=== PATIENT | male | born 1975 | race Two or more races ===

== ENCOUNTER 2021-05-09 01:23 | Emergency (ER) | payer SELFPAY ==
[2021-05-09] MEDS ORDERED: Sodium Chloride 0.9% 1,000 ML IV ONE (01:25)
[2021-05-09] MEDS ORDERED: Sodium Chloride 0.9% 2.5 ML Syringe FLUSH PRN (01:35)
[2021-05-09] MEDS ORDERED: Sodium Chloride 0.9% 10 ML Syringe FLUSH PRN (01:35)
[2021-05-09] MEDS ORDERED: Naloxone 0.4 MG/ML Syringe IVPUSH ONE (01:36)
--- NOTE | 2021-05-09 01:47 | EDM.PDOC ---
<Manas Zavaleta - Last Filed: 05/09/21 06:01> ED HPI GENERAL MEDICAL PROBLEM - General Chief Complaint: Drug or Alcohol Abuse Stated Complaint: OVERDOSE Time Seen by Provider: 05/09/21 01:37 - History of Present Illness INITIAL COMMENTS - FREE TEXT/NARRATIVE: History of present illness: [] Medics brought this patient unconscious from the [facility]. There were 10 or so people there that appear to be intoxicated. One other was unconscious. This 1 rales more easily with Narcan and then the other so the first 1 was brought ahead of this 1. Patient was moving his hands to noxious stimuli but not opening his eyes. Initial Glascow of 5. Before intubation we gave Narcan for additional milligrams after it had 4 AM and to IV. The patient woke up. He is very sleepy but able to open his eyes spontaneously and had a Glascow of 10 after the Narcan. He still did not speak to me. He did shake his head yes appropriately. Review of systems: As per history of present illness and below otherwise all systems reviewed and negative. Past medical history: As per history of present illness and as reviewed below otherwise noncontributory. Surgical history: As per history of present illness and as reviewed below otherwise noncontributory. Social history: No reported history of drug or alcohol abuse. Family history: As per history of present illness and as reviewed below otherwise noncontributory. Physical exam: Constitutional - well developed, well-nourished and in no acute distress HEENT - normocephalic, no evidence of trauma - external nose and mouth normal - no mass in neck and no JVD - mucosae moist EYES - full EOM, PERRL, no icterus - no evidence of inflammation, injection, or drainage Respiratory - no respiratory distress, equal bilateral expansion, lungs clear to auscultation and no abnormal lung sounds Cardiovascular - Regular Rhythm with S1 and S2 appreciated and no murmur, gallop or rub. GI - abdomen soft without distension or organomegaly - normal bowel sounds - no guard or rebound Musculoskeletal no gross deformity of long bones or joints - no tenderness, swelling or edema Neurologic -lethargic but opens his eyes and shake his head yes and no to appropriate questions- CN II-XII grossly intact - motor sensory and coordination symmetrically normal Psychiatric -unable to assess Hematologic - No petechiae or purpura - mucosa appropriate color and sclera not pale - normal nail bed color and refill Integument - no rash or evidence of trauma - normal turgor Diagnostics: [] Therapeutics: [] Impression: [] Plan: [] Definitive disposition and diagnosis as appropriate pending reevaluation and review of above. - Related Data Allergies Allergy/AdvReac Type Severity Reaction Status Date / Time Unable to Assess Allergy Unverified 05/09/21 03:36 Home Meds: Home Meds . [Unable to Verify Home Med List] 05/09/21 [History] ED ROS GENERAL - Review of Systems Review Of Systems: Comprehensive ROS is negative, except as noted in HPI. Reason Not Obtained: Patient does not answer most of my questions ED EXAM, GENERAL - Physical Exam Exam: See Below Free Text/Narrative:: Physical exam is in the HPI Course - Vital Signs Text/Narrative:: 3:37 AM the patient has an alcohol for 48. He is protecting his own airway. The only people they could possibly give him a ride home that I have access to were almost as bad office he is. I think he is going to have to wake up so we can talk to him more and see if he needs anything else done. Departure - Departure Disposition: Home, Self-Care 01 Condition: Good Clinical Impression: Alcohol intoxication - Discharge Information Instructions: Alcohol Intoxication, [id number] Referrals: PCP,None [Primary Care Provider] - Forms: ED Department Discharge Additional Instructions: The following information is given to patients seen in the emergency department who are being discharged to home. This information is to outline your options for follow-up care. We provide all patients seen in our emergency department with a follow-up referral. The need for follow-up, as well as the timing and circumstances, are variable depending upon the specifics of your emergency department visit. If you don't have a primary care physician on staff, we will provide you with a referral. We always advise you to contact your personal physician following an emergency department visit to inform them of the circumstance of the visit and for follow-up with them and/or the need for any referrals to a consulting specialist. The emergency department will also refer you to a specialist when appropriate. This referral assures that you have the opportunity for follow-up care with a specialist. All of these measure are taken in an effort to provide you with optimal care, which includes your follow-up. Under all circumstances we always encourage you to contact your private physician who remains a resource for coordinating your care. When calling for follow-up care, please make the office aware that this follow-up is from your recent emergency room visit. If for any reason you are refused follow-up, please contact the [facility] Emergency Department at and asked to speak to the emergency department charge nurse. [facility] [address] [place] [id number] [address] <Leonel Escobedo - Last Filed: 05/09/21 08:28> Course - Vital Signs Last Recorded V/S: Last Vital Signs Temp 97.1 F 05/09/21 01:23 Pulse 69 05/09/21 01:23 Resp 10 L 05/09/21 01:23 BP 107/64 05/09/21 01:23 Pulse Ox 96 05/09/21 01:23 - Orders/Labs/Meds Orders: Active Orders 24 hr Category Date Time Status DRUG SCREEN, URINE [URCHEM] Stat Lab 05/09/21 01:35 Ordered Sodium Chloride 0.9% [Saline Flush] Med 05/09/21 01:35 Active 10 ml FLUSH ASDIRECTED PRN Sodium Chloride 0.9% [Saline Flush] Med 05/09/21 01:35 Active 2.5 ml FLUSH ASDIRECTED PRN Saline Lock Insert [OM.PC] Stat Oth 05/09/21 01:35 Ordered Medication Orders Sodium Chloride (Sodium Chloride 0.9% 10 Ml Syringe) 10 ml FLUSH ASDIRECTED PRN PRN Reason: Keep Vein Open Last Admin: 05/09/21 08:13 Dose: 10 ml Documented by: SALONI Sodium Chloride (Sodium Chloride 0.9% 2.5 Ml Syringe) 2.5 ml FLUSH ASDIRECTED PRN PRN Reason: Keep Vein Open Last Admin: 05/09/21 08:13 Dose: 2.5 ml Documented by: SALONI Labs: Laboratory Tests 05/09/21 05/09/21 Range/Units 01:23 01:23 WBC 8.28 (4.0-11.0) K/uL RBC 4.91 (4.50-5.90) M/uL Hgb 14.9 (13.0-17.0) g/dL Hct 43.6 (38.0-50.0) % MCV 88.8 (80.0-98.0) fL MCH 30.3 (27.0-32.0) pg MCHC 34.2 (31.0-37.0) g/dL RDW Std Deviation 46.0 (28.0-62.0) fl RDW Coeff of Raghavendra 14 (11.0-15.0) % Plt Count 204 (150-400) K/uL MPV 11.10 (7.40-12.00) fL Neut % (Auto) 42.8 L (48.0-80.0) % Lymph % (Auto) 48.4 H (16.0-40.0) % Hardee % (Auto) 4.8 (0.0-15.0) % Eos % (Auto) 3.6 (0.0-7.0) % Baso % (Auto) 0.4 (0.0-1.5) % Neut # (Auto) 3.5 (1.4-5.7) K/uL Lymph # (Auto) 4.0 H (0.6-2.4) K/uL Hardee # (Auto) 0.4 (0.0-0.8) K/uL Eos # (Auto) 0.3 (0.0-0.7) K/uL Baso # (Auto) 0.0 (0.0-0.1) K/uL Nucleated RBC % 0.0 /100WBC Nucleated RBCs # 0 K/uL Sodium 142 (136-148) mmol/L Potassium 3.7 (3.5-5.1) mmol/L Chloride 106 (98-107) mmol/L Carbon Dioxide 23.0 (21.0-32.0) mmol/L BUN 10 (7.0-18.0) mg/dL Creatinine 0.9 (0.8-1.3) mg/dL Est Cr Clr Drug Dosing TNP Estimated GFR (MDRD) > 60.0 ml/min Glucose 120 H (74-106) mg/dL Calcium 8.3 L (8.5-10.1) mg/dL Magnesium 2.4 (1.8-2.4) mg/dL Total Bilirubin 0.2 (0.2-1.0) mg/dL AST 35 (15-37) IU/L ALT 48 (14-63) IU/L Alkaline Phosphatase 78 (46-116) U/L Total Protein 7.6 (6.4-8.2) g/dL Albumin 3.8 (3.4-5.0) g/dL Globulin 3.8 (2.6-4.0) g/dL Albumin/Globulin Ratio 1.0 (0.9-1.6) Ethyl Alcohol 448 mg/dL Meds: Medications Generic Name Dose Route Start Last Admin Trade Name Bony PRN Reason Stop Dose Admin Sodium Chloride 10 ml 05/09/21 01:35 05/09/21 08:13 Sodium Chloride 0.9% 10 Ml Syringe FLUSH 10 ml ASDIRECTED PRN Administration Keep Vein Open Sodium Chloride 2.5 ml 05/09/21 01:35 05/09/21 08:13 Sodium Chloride 0.9% 2.5 Ml Syringe FLUSH 2.5 ml ASDIRECTED PRN Administration Keep Vein Open Discontinued Medications Generic Name Dose Route Start Last Admin Trade Name Bony PRN Reason Stop Dose Admin Sodium Chloride 1,000 mls @ 999 mls/hr 05/09/21 01:25 05/09/21 01:25 Normal Saline IV 05/09/21 02:25 999 mls/hr .BOLUS ONE Administration Naloxone HCl 4 mg 05/09/21 01:36 05/09/21 04:10 Naloxone 0.4 Mg/Ml Syringe IVPUSH 05/09/21 01:37 4 mg ONETIME ONE Administration - Re-Assessments/Exams Free Text/Narrative Re-Assessment/Exam: 05/09/21 08:27 Pt now able to ambulate and tolerate p.o. his friend is coming to pick patient up patient will be discharged to scope custody. Departure - Departure Time of Disposition: 08:27 Sepsis Event Note (ED) - Focused Exam Vital Signs: Vital Signs Temp Pulse Resp BP Pulse Ox 05/09/21 01:23 97.1 F 69 10 L 107/64 96
[2021-05-09 02:00] LABS: BLOOD UREA NITROGEN,BUN 10 mg/dL (7.0-18.0); CHLORIDE,CL 106 mmol/L (98-107); GLUCOSE RANDOM 120 mg/dL (74-106); POTASSIUM,K 3.7 mmol/L (3.5-5.1); SODIUM,NA 142 mmol/L (136-148)
== END 2021-05-09 08:38 | disposition home or self-care (01) ==
LOC: MW.ED 01:23
DX: F10.129 Alcohol abuse with intoxication, unspecified (principal); Y90.2 Blood alcohol level of 40-59 mg/100 ml
CPT/HCPCS: 36415; 80053; 80307; 83735; 85025; 96374; 99284; A9270; J7030